=== PATIENT | female | born 1955 | race Caucasian/White ===

== ENCOUNTER 2021-08-02 00:54 | Day surgery (SDC) | payer MEDICARE, SELFPAY ==
[2021-07-21 10:46] VITALS: BMI 37.0
[2021-08-02 07:52] VITALS: BP 137/89; PULSE 90; RESP 18; TEMP 35.8; O2SAT 98; BMI 38.0
[2021-08-02] MEDS: LACTATED RINGERS 1,000 ML 150 ML IV CONT (08:03)
--- NOTE | 2021-08-02 08:14 | WPDGICN ---
Assessment and Plan Assessment and plan (1) Family history of colon cancer in father: Code(s): Z80.0 - Family history of malignant neoplasm of digestive organs Status: Acute Assessment and Plan: Patient's father had colon cancer. For this reason surveillance colonoscopy advised now and at 5 year intervals in the future. Further recommendations will be given after endoscopy. GI Consult Note Consult date/time: 08/02/21 08:14 HPI: Kayce Burch is a 65 year old female Presents for screening colonoscopy. Patient's family history is significant that her father had colon cancer. Patient reports that her current weight appetite and bowel movements are normal. Patient denies abdominal pain. She has had no bleeding. Her last colonoscopy was 10 years ago. She reports no blood in her stools. She has had no abdominal pain. Review of Systems Review of Systems: All systems reviewed & are unremarkable except as noted in HPI and below PMFSH Family History Family History Father Diabetes mellitus Hypertension Family history of cardiovascular disease Carcinoma of colon Family history of lung cancer Grandparent Diabetes mellitus Hypertension Family history of cardiovascular disease Acute myocardial infarction Family history of malignant neoplasm Family history of malignant neoplasm of uterus Mother Depression Hypertension Family history of elevated blood lipids Family history of cardiovascular disease Social History Social History Smoking status: Never smoker Alcohol intake: never Living arrangements: with family Spiritual care concerns: No Meds Home Medications and Allergies Home Medications Medication Instructions Recorded Confirmed Type lisinopril 10 1 tablet PO DAILY #90 tablet 06/03/20 07/21/21 Rx mg-hydrochlorothiazide 12.5 mg tablet atorvastatin 20 mg tablet 20 mg PO DAILY #90 tablet 09/09/20 07/21/21 Rx allopurinol 100 mg tablet 100 mg PO DAILY #90 tablet 12/08/20 07/21/21 Rx gabapentin 300 mg capsule 300 mg PO BID #180 cap 01/24/21 07/21/21 Rx aspirin [Adult Low Dose Aspirin] 81 mg PO DAILY 07/21/21 07/21/21 History cholecalciferol (vitamin D3) 125 mcg PO DAILY 07/21/21 07/21/21 History [Vitamin D3] diphenhydramine-acetaminophen 2 tablet PO HS PRN 07/21/21 07/21/21 History [Tylenol PM Extra Strength] mecobalamin (vitamin B12) 1,000 mcg PO DAILY 07/21/21 07/21/21 History ysintsrd-dyu-rdyl-FA-lutein 1 tablet PO DAILY 07/21/21 07/21/21 History [Centrum Silver Women] venlafaxine 75 mg PO DAILY 07/21/21 07/21/21 History Allergies Allergy/AdvReac Type Severity Reaction Status Date / Time azithromycin Allergy Unknown Nausea Verified 08/02/21 07:51 hydrocodone Allergy Unknown Nausea Verified 08/02/21 07:51 Vital Signs Vital Signs - 24 hr 08/02/21 07:52 Temperature 96.5 F L Pulse Rate 90 Respiratory Rate 18 Blood Pressure 137/89 Pulse Oximetry 98 Exam Narrative: Physical exam reveals patient be alert. Vital signs stable. HEENT exam is unremarkable. Patient is anicteric. Lungs are clear to auscultation and percussion. Heart is without murmur or extra sounds. Abdominal exam is somewhat obese. Bowel sounds are present soft nontender with no organomegaly. Digital external rectal exam is normal.
--- NOTE | 2021-08-02 08:28 | WPDANESEPPF ---
Anes - Initial Pre Proc Eval Procedure: Operation Date: 08/02/21 09:00 Proposed Procedures p Screening Colonoscopy - Harinder Cristobal MD Date/Time: 08/02/21 08:28 Surgeon: Harinder Cristobal MD Pre Op Diagnosis: neoplasm screening Patient Data Age: 65 Gender: F Height: 1.6 m Weight: 97.5 kg Last Vital Signs Temp 96.5 F L 08/02/21 07:52 Pulse 90 08/02/21 07:52 Resp 18 08/02/21 07:52 BP 137/89 08/02/21 07:52 Pulse Ox 98 08/02/21 07:52 Allergies Allergy/AdvReac Type Severity Reaction Status Date / Time azithromycin Allergy Unknown Nausea Verified 08/02/21 07:51 hydrocodone Allergy Unknown Nausea Verified 08/02/21 07:51 Home Medications Medication Instructions Recorded Confirmed Type lisinopril 10 1 tablet PO DAILY #90 tablet 06/03/20 07/21/21 Rx mg-hydrochlorothiazide 12.5 mg tablet atorvastatin 20 mg tablet 20 mg PO DAILY #90 tablet 09/09/20 07/21/21 Rx allopurinol 100 mg tablet 100 mg PO DAILY #90 tablet 12/08/20 07/21/21 Rx gabapentin 300 mg capsule 300 mg PO BID #180 cap 01/24/21 07/21/21 Rx aspirin [Adult Low Dose Aspirin] 81 mg PO DAILY 07/21/21 07/21/21 History cholecalciferol (vitamin D3) 125 mcg PO DAILY 07/21/21 07/21/21 History [Vitamin D3] diphenhydramine-acetaminophen 2 tablet PO HS PRN 07/21/21 07/21/21 History [Tylenol PM Extra Strength] mecobalamin (vitamin B12) 1,000 mcg PO DAILY 07/21/21 07/21/21 History keevihbh-tit-zdjs-FA-lutein 1 tablet PO DAILY 07/21/21 07/21/21 History [Centrum Silver Women] venlafaxine 75 mg PO DAILY 07/21/21 07/21/21 History Patient hx anesthesia problems: none Family hx anesthesia problems: none PMFSH Past Medical History Medical History (Updated 08/02/21 @ 08:27 by Alonso Lopez MD) Chronic kidney disease, stage 3 (moderate) Hypertension Mixed hyperlipidemia Family History Family History Father Diabetes mellitus Hypertension Family history of cardiovascular disease Carcinoma of colon Family history of lung cancer Grandparent Diabetes mellitus Hypertension Family history of cardiovascular disease Acute myocardial infarction Family history of malignant neoplasm Family history of malignant neoplasm of uterus Mother Depression Hypertension Family history of elevated blood lipids Family history of cardiovascular disease Social History Social History Smoking status: Never smoker Alcohol intake: never Living arrangements: with family Spiritual care concerns: No Anes - Eval Final PreProcedure Day of Procedure 08/02/21 08:28 Patient weight: obese Heart: regular rate and rhythm Lungs: clear to auscultation Airway: Mallampati scale class II Neurological: alert and oriented Last oral intake: >/= 8 hours ASA classification: III Emergent: no Anesthetic plan: proceed Anesthesia type and monitoring: general GIVS and standard monitoring Informed Consent: The patient's anesthetic plan and its attendant risks and benefits were discussed with the patient/family/POA. Questions were solicited and answers provided to the satisfaction of the patient/family/POA.
[2021-08-02 09:16] VITALS: BP 103/64; PULSE 80; RESP 20; O2SAT 98
[2021-08-02 09:26] VITALS: BP 123/71; PULSE 73; RESP 16; O2SAT 100
[2021-08-02 09:36] VITALS: BP 145/84; PULSE 66; RESP 13; O2SAT 100
== END 2021-08-02 09:42 | disposition home or self-care (01) ==
PROVIDERS: PCP Family Medicine; Visit Provider Internal Medicine Gastroenterology
PROC: 0DJD8ZZ Inspection of Lower Intestinal Tract, Via Natural or Artificial Opening Endoscopic (ICD-10-PCS; CPT 45378; principal; 2021-08-02 09:00)
DX: Z12.11 Encounter for screening for malignant neoplasm of colon (principal); Z80.0 Family history of malignant neoplasm of digestive organs; K64.8 Other hemorrhoids; Z79.82 Long term (current) use of aspirin; I12.9 Hypertensive chronic kidney disease with stage 1 through stage 4 chronic kidney disease, or unspecified chronic kidney disease; N18.30 Chronic kidney disease, stage 3 unspecified; E78.2 Mixed hyperlipidemia; E66.9 Obesity, unspecified; Z68.38 Body mass index [BMI] 38.0-38.9, adult
CPT/HCPCS: G0105; J2001; J2704; J7120

== ENCOUNTER 2023-03-31 11:09 | Outpatient (CLI) | payer MEDICARE, SELFPAY ==
--- NOTE | ~2023-03-31 | MM_ITS ---
EXAMINATION: MM screening [facility] BI w leonides HISTORY: Screening mammogram TECHNIQUE: Craniocaudal and mediolateral oblique 3-D tomosynthesis images were obtained and synthetic 2-D images were generated. CAD analysis was submitted and interpreted. COMPARISON: 10/25/2012, 09/21/2010, 11/14/2009 BREAST PARENCHYMAL COMPOSITION: The breasts are almost entirely fatty. FINDINGS: No suspicious mass, calcification, or architectural distortion are identified in either en ast to suggest malignancy. There has been no suspicious interval change. IMPRESSION: 1. No mammographic evidence of malignancy. 2. Recommend routine screening mammography in one year. BI-RADS Category 1: Negative Reviewed, dictated and finalized at location A.
== END 2023-03-31 11:10 | disposition home or self-care (01) ==
PROVIDERS: PCP Family Medicine; Visit Provider Physician Assistant
DX: Z12.31 Encounter for screening mammogram for malignant neoplasm of breast (principal)
CPT/HCPCS: 77063; 77067

== ENCOUNTER 2024-02-18 14:52 | Outpatient (CLI) | payer MEDICARE, SELFPAY ==
--- NOTE | ~2024-02-18 | XR_ITS ---
XR lumbar spine min 4V DATE: 02/18/2024 15:09 INDICATION: Back pain TECHNIQUE: AP, lateral, coned lateral lumbosacral and bilateral oblique views COMPARISON: None FINDINGS: Mild levoscoliosis. Osteopenia. The lumbar pedicles are intact. No fracture or bone destruction. There is prominent degenerative change of the apophyseal joints with borderline grade 1/grade 2 anter olisthesis. Moderately severe degenerative disc disease at L4-5. Severe degenerative disc disease at L5-S1. The sacroiliac joints are intact, with mild degenerative change. Mild bilateral hip osteoarthritis. IMPRESSION: Borderline grade 1/grade 2 anterolisthesis at L4-5 secondary to severe degenerative king e at the apophyseal joints Osteopenia Multilevel degenerative disc disease, mildly severe L4-5, severe at L5-S1, mild at the remaining leve ls Reviewed, dictated and finalized at location B. IMPRESSION: Borderline grade 1/grade 2 anterolisthesis at L4-5 secondary to sev ere degenerative change at the apophyseal joints Osteopenia Multilevel degenerative disc disease, mildly severe L4-5, severe at L5-S1, mild at the remaining levels
--- NOTE | ~2024-02-18 | XR_ITS ---
XR thoracic spine 2V DATE: 02/18/2024 15:09 INDICATION: Back pain TECHNIQUE: AP, lateral and swimmer views COMPARISON: None FINDINGS: There is minimal levoscoliosis. There is moderately prominent degenerative spurring of the thoracic spine. The thoracic pedicles are intact. There is no fracture or dislocation or bone dest ruction. No paraspinal soft tissue thickening. IMPRESSION: Moderate degenerative spurring Minimal levoscoliosis Reviewed, dictated and finalized at location B.
== END 2024-02-18 14:53 ==
PROVIDERS: PCP Family Medicine; Visit Provider Family Medicine
DX: M85.88 Other specified disorders of bone density and structure, other site (principal); M51.36 Other intervertebral disc degeneration, lumbar region
CPT/HCPCS: 72070; 72110

== ENCOUNTER 2024-02-28 09:09 | Outpatient (CLI) | payer MEDICARE, SELFPAY ==
--- NOTE | ~2024-02-28 | CT_ITS ---
CT of the Abdomen and Pelvis, and lumbar spine: Indication: Abdominal pain Technique: 2.5 mm axial scans were obtained through the abdomen and pelvis following intravenous adm inistration of 100 cc of Omnipaque 350. Axial imaging of the lumbar spine was also performed. Dose re duction technique was used on this scan by utilizing automated exposure control and iterative reconst ruction technique. The dose-length product (DLP) was 1148.14 mGy-cm. Findings: Scans through the lung bases are unremarkable. The liver, spleen, pancreas, gallbladder, adrenals and kidneys are within normal limits. No evidence of aortic aneurysm. No lymphadenopathy. No bowel obstruction or bowel wall thickening. There is no evidence to suggest acute appendicitis. Sm all fat-containing umbilical hernia noted. Images through the pelvis were performed. Urinary bladder unremarkable. No pelvic mass seen. No ascit es. Lumbar spine findings: No acute fracture seen. There is 8mm anterolisthesis of L4 over L5. There is a dvanced degenerative disc narrowing at L4-L5 and L5-S1. Remaining disc spaces demonstrate minimal deg enerative change. At L1-L2, there is minimal disc bulge. No central canal stenosis. There is moderate bilateral neural foraminal narrowing. At L2-L3, there is minimal disc bulge and mild facet arthropathy. Possible mild central canal stenosi s. There is moderate right neural foraminal narrowing. Left neural foramen preserved. At L3-L4, there is mild disc bulge and facet arthropathy. No definite central canal stenosis. There i s mild bilateral neural foraminal narrowing. At L4-L5, disc bulge/uncovering and facet arthropathy in conjunction with listhesis contribute to pro bable severe spinal canal stenosis/thecal sac compression. There is severe bilateral neural foraminal caliber otherwise. At L5-S1, there is no disc bulge or herniation. There is advanced facet arthropathy. No spinal canal stenosis. There is severe right neural foraminal narrowing, and moderate left neural foraminal narrow ing. Impression: No acute abnormality in the abdomen or pelvis. Small fat-containing umbilical hernia. No acute fracture the lumbar spine. 8 mm anterolisthesis of L4 over L5, with advanced degenerative spondylosis, especially the lower lumb ar spine. Reviewed, dictated and finalized at location M. Impression: No acute abnormality in the abdomen or pelvis. Small fat-containing umbilical h ernia. No acute fracture the lumbar spine. 8 mm anterolisthesis of L4 over L5, with advanced degenerative spondylosis, jasen ecially the lower lumbar spine.
[2024-02-28 09:43] LABS: Estimated Glomerular Filt Rate 32
== END 2024-02-28 09:10 | disposition home or self-care (01) ==
LOC: ANHIMG 09:14
PROVIDERS: PCP Family Medicine; Visit Provider Family Medicine
DX: R10.9 Unspecified abdominal pain (principal)
CPT/HCPCS: 72132; 74177; Q9967

== ENCOUNTER 2024-08-19 11:21 | Outpatient (CLI) | payer MEDICARE, SELFPAY ==
[2024-08-19 14:07] LABS: Basophils Absolute Auto 0.1 K/mm3 (0.0-0.1); Basophils Percent Auto 0.6 % (0.2-1.2); Eosinophils Absolute Auto 0.5 K/mm3 (0-0.3); Eosinophils Percent Auto 4.7 % (0-4.4); Hematocrit 40.6 % (37.0-47.0); Hemoglobin 12.8 g/dL (12.0-15.0); Immature Granulocyte Absolute 0.06 K/mm3 (0.00-0.031); Immature Granulocyte Percent A 0.6 % (0-0.5); Lymphocytes Absolute Auto 2.87 K/mm3 (0.9-3.2); Lymphocytes Percent Auto 28.9 % (18.3-44.2); Mean Corpuscular HGB Conc 31.5 g/dl (32-36); Mean Corpuscular Hemoglobin 29.6 pg (26-34); Mean Corpuscular Volume 93.8 fl (80-100); Mean Platelet Volume 10.6 fl (7.4-10.4); Monocytes Absolute Auto 0.7 K/mm3 (0.1-0.6); Monocytes Percent Auto 6.5 % (2.6-8.5); Neutrophils Absolute Auto 5.8 K/mm3 (1.3-6.7); Neutrophils Percent Auto 58.7 % (45.5-73.1); Platelet Count Result 415 k/mm3 (150-375); Red Blood Count 4.33 M/mm3 (4.2-5.4); Red Cell Distribution Width 13.2 % (11.5-14.5); White Blood Count 9.9 K/mm3 (4.5-10.0)
[2024-08-19 14:35] LABS: Alanine Aminotransferase 17 U/L (6-35); Albumin Level 4.4 g/dL (3.5-5.1); Alkaline Phosphatase 74 U/L (38-126); Anion Gap 10 mmol/L (4-12); Aspartate Amino Transferase 61 U/L (14-36); Bilirubin,Total 0.5 mg/dL (0.2-1.3); Blood Urea Nitrogen 22 mg/dL (7-17); Calcium 9.1 mg/dL (8.4-10.2); Carbon Dioxide 26 mmol/L (22-30); Chloride 103 mmol/L (98-107); Cholesterol 137 mg/dL (0-200); Estimated Glomerular Filt Rate 45; Glucose 90 mg/dL (65-110); HDL Direct 55 mg/dL; Potassium 4.3 mmol/L (3.4-5.0); Sodium 139 mmol/L (137-145); Triglycerides 139 mg/dL (<150)
[2024-08-19 14:53] LABS: LDL Cholesterol Direct 36 mg/dL
[2024-08-19 15:27] LABS: Hepatitis C Virus Antibody Negative (Negative)
== END 2024-08-19 11:22 | disposition home or self-care (01) ==
PROVIDERS: PCP Family Medicine; Visit Provider Nurse Practitioner Family
DX: E78.5 Hyperlipidemia, unspecified (principal); Z11.59 Encounter for screening for other viral diseases
CPT/HCPCS: 36415; 80053; 80061; 85025; 86803

== ENCOUNTER 2025-09-15 09:01 | Outpatient (CLI) | payer MEDICARE, SELFPAY ==
--- NOTE | ~2025-09-15 | MM_ITS ---
EXAMINATION: MM screening [facility] w leonides HISTORY: Screening TECHNIQUE: Craniocaudal and mediolateral oblique 3-D tomosynthesis images were obtained and synthetic 2-D images were generated. CAD analysis was submitted and interpreted. COMPARISON: Comparison to multiple prior studies sequentially, with oldest reviewed study dated 10/25/2012. BREAST PARENCHYMAL COMPOSITION: Not Dense: The breasts are almost entirely fatty. FINDINGS: There is no evidence of suspicious mass, calcification, or architectural distortion to suggest malignancy in either breast. There has been no suspicious interval change. IMPRESSION: 1. No mammographic evidence of malignancy. 2. Recommend routine screening mammography in one year. BI-RADS Category 1: Negative Reviewed, dictated and finalized at location B.
== END 2025-09-15 09:02 | disposition home or self-care (01) ==
LOC: ANHFOHIMG 09:03
PROVIDERS: PCP Family Medicine; Visit Provider Nurse Practitioner Family
DX: Z12.31 Encounter for screening mammogram for malignant neoplasm of breast (principal)
CPT/HCPCS: 77063; 77067